=== PATIENT | female | born 1995 | race Two or more races ===

== ENCOUNTER 2025-07-22 18:36 | Inpatient (IN) | payer OTHER ==
[~2025-07-22] VITALS: Ht 170.2 cm; Wt 3.2 kg
[2025-07-22] MEDS ORDERED: RINGERS SOLUTION,LACTATED 1,000 ML IV SCH (18:45)
[2025-07-22] MEDS ORDERED: CHILDREN'S ASPI81 MG PO (19:05)
[2025-07-22] MEDS ORDERED: PRENATAL TABLE1 EAC1 PO (19:05)
[2025-07-22 19:10] VITALS: BP 119/82; O2SAT 100
[2025-07-22 19:54] LABS: BASO % 0.1 % (0.1-1.2); EOS # 0.04 (0.04-0.54); EOS % 0.4 % (0.7-7.0); LYMPH # 3.14 (1.18-3.74); LYMPH % 34.3 % (19.3-53.1); MEAN PLATELET VOLUME 12.40 fl (9.4-12.4); MONO # 0.70 (0.24-0.82); MONO % 7.6 % (4.7-12.5); NEUT # 5.23 (1.56-6.13); NEUT % 57.2 % (34.0-71.1); RED CELL DISTRIBUTION WIDTH 14.6 % (11.6-14.4)
[2025-07-22 19:56] LABS: URINE APPEARANCE Cloudy; URINE BILIRRUBIN Negative (NEGATIVE); URINE BLOOD Negative; URINE COLOR Dark Yellow; URINE GLUCOSE Negative (NEGATIVE); URINE KETONE Trace (NEGATIVE); URINE LEUKOCYTE Negative; URINE NITRATE Negative; URINE UROBILINOGEN 1.0 E.U./dl
[2025-07-22 19:59] LABS: URINE CAST 4.25 uL (0.0-1.40); URINE EPITHELIAL CELLS 96.7 uL (0.0-38.8); URINE RBC 8.6 uL (0.0-20.8); URINE WBC 78.4 uL (0.0-23.2)
[2025-07-22] MEDS ORDERED: AMPICILLIN SODIUM 2,000 MG VIAL IV ONE (20:15)
[2025-07-22 20:16] LABS: URINE PROTEIN 300 (NEGATIVE)
[2025-07-22 20:24] LABS: INR 0.96
[2025-07-22 20:28] LABS: ALT/SGPT 16.0 U/L (12-78); AST/SGOT 28.0 U/L (15-37); BILIRUBIN TOTAL 0.2 mg/dL (0.3-1.2); BUN CREA RATIO 15.0 (7.0-25.0); CREATININE SERUM 0.79 mg/dL (0.55-1.02); GFR 86.66; GLOBULINA 3.8 G/DL (2.4-3.5); GLUCOSE FASTING 109.0 mg/dL (65-100); OSMOLALITY SERUM 280.0 MOSM/KG (275-295)
[2025-07-22] MEDS ORDERED: MISOPROSTOL 25 MCG/4 ML GEL.W.APPL ONE (21:12)
[2025-07-22] MEDS ORDERED: MISOPROSTOL 25 MCG/4 ML GEL.W.APPL VAG ONE (22:15)
[2025-07-22 23:17] VITALS: BP 136/77
[2025-07-23] MEDS ORDERED: AMPICILLIN SODIUM 1,000 MG VIAL IV SCH
[2025-07-23 03:05] VITALS: BP 128/83
[2025-07-23 07:32] VITALS: BP 136/71
[2025-07-23] MEDS ORDERED: OXYTOCIN 20 UNITS/500ML RL PIGGYBAG IV ONE (08:10)
[2025-07-23] MEDS ORDERED: OXYTOCIN 500 ML IV SCH (08:30)
[2025-07-23 11:24] VITALS: BP 127/76
[2025-07-23 15:41] VITALS: BP 144/82
[2025-07-23] MEDS ORDERED: ACETAMINOPHEN 500 MG GEL..CAP PO ONE (17:09)
[2025-07-23] MEDS ORDERED: MORPHINE SULFATE 4 MG/ML CARTRIDGE IV STA (20:39)
[2025-07-23 23:38] VITALS: BP 147/83
[2025-07-24 04:37] VITALS: BP 128/71
[2025-07-24] MEDS ORDERED: OXYTOCIN 10 UNITS/ML VIAL ONE ×2 (07:22→13:13)
[2025-07-24] MEDS ORDERED: ERYTHROMYCIN BASE OPHT 1GM EACH TUBE OP ONE (07:22)
[2025-07-24 07:27] VITALS: BP 148/89
[2025-07-24] MEDS ORDERED: CEFAZOLIN SODIUM 1,000 MG VIAL ONE (08:12)
[2025-07-24] MEDS ORDERED: MORPHINE SULFATE 4 MG/ML VIAL IV PRN (09:15)
[2025-07-24] MEDS ORDERED: OXYTOCIN 1,000 ML IV SCH (10:45)
[2025-07-24] MEDS ORDERED: RINGERS SOLUTION,LACTATED 1,000 ML IV SCH (10:45)
[2025-07-24] MEDS ORDERED: SIMETHICONE 125 MG CAPSULE PO SCH (13:00)
[2025-07-24 13:21] LABS: BASO % 0.1 % (0.1-1.2); EOS # 0.01 (0.04-0.54); EOS % 0.1 % (0.7-7.0); LYMPH # 1.88 (1.18-3.74); LYMPH % 12.4 % (19.3-53.1); MEAN PLATELET VOLUME 12.30 fl (9.4-12.4); MONO # 1.02 (0.24-0.82); MONO % 6.7 % (4.7-12.5); NEUT # 12.12 (1.56-6.13); NEUT % 80.0 % (34.0-71.1); RED CELL DISTRIBUTION WIDTH 14.9 % (11.6-14.4)
[2025-07-24 14:08] VITALS: BP 130/80
[2025-07-24] MEDS ORDERED: DOCUSATE SODIUM 100MG CAP PO SCH (17:00)
[2025-07-24] MEDS ORDERED: KETOROLAC TROMETHAMINE 30 MG VIAL IM STA (18:19)
[2025-07-24 22:14] VITALS: BP 138/88
[2025-07-25 01:25] VITALS: BP 129/80
[2025-07-25 08:00] VITALS: BP 136/87
[2025-07-25] MEDS ORDERED: KETOROLAC TROMETHAMINE 60 MG VIAL IM STA (09:06)
[2025-07-25 16:39] VITALS: BP 120/80
[2025-07-25] MEDS ORDERED: KETOROLAC TROMETHAMINE 60 MG VIAL IM SCH (17:45)
[2025-07-25] MEDS ORDERED: IRON FUM,PS/FOLIC/BCOMP,C NO.9 1 CAP CAPSULE PO NR (17:50)
[2025-07-26] VITALS: BP 121/80
[2025-07-26 07:00] VITALS: BP 141/96; O2SAT 100
[2025-07-26] MEDS ORDERED: IRON FUM,PS/FOLIC/BCOMP,C NO.9 1 CAP CAPSULE PO SCH (09:00)
[2025-07-26] MEDS ORDERED: KETOROLAC TROMETHAMINE 60 MG VIAL IM ONE (16:15)
[2025-07-26] MEDS ORDERED: SIMETHICONE 125 MG CAPSULE PO SCH (17:00)
[2025-07-26 17:04] VITALS: BP 137/85
[2025-07-26] MEDS ORDERED: ACETAMINOPHEN 500 MG GEL..CAP PO SCH (18:38)
[2025-07-26] MEDS ORDERED: DOCUSATE SODIUM 100MG CAP PO SCH (18:40)
[2025-07-26] MEDS ORDERED: KETOROLAC TROMETHAMINE 60 MG VIAL IM PRN (18:45)
[2025-07-26 20:00] VITALS: BP 117/78
[2025-07-26 21:24] LABS: BASO % 0.1 % (0.1-1.2); EOS # 0.09 (0.04-0.54); EOS % 0.7 % (0.7-7.0); LYMPH # 2.55 (1.18-3.74); LYMPH % 20.0 % (19.3-53.1); MEAN PLATELET VOLUME 12.40 fl (9.4-12.4); MONO # 1.01 (0.24-0.82); MONO % 7.9 % (4.7-12.5); NEUT # 8.99 (1.56-6.13); NEUT % 70.7 % (34.0-71.1); RED CELL DISTRIBUTION WIDTH 15.3 % (11.6-14.4)
[2025-07-26 21:24] LABS: URINE APPEARANCE Turbid; URINE BILIRRUBIN Negative (NEGATIVE); URINE BLOOD Large; URINE COLOR Orange; URINE GLUCOSE Negative (NEGATIVE); URINE KETONE Trace (NEGATIVE); URINE LEUKOCYTE Small; URINE NITRATE Negative; URINE UROBILINOGEN 0.2 E.U./dl
[2025-07-26 21:28] LABS: URINE BACTERIA 1534.7 uL (0.0-1933); URINE EPITHELIAL CELLS 109.6 uL (0.0-38.8); URINE WBC 995.7 uL (0.0-23.2)
[2025-07-26 21:53] LABS: ALT/SGPT 20.0 U/L (12-78); AST/SGOT 24.0 U/L (15-37); BILIRUBIN TOTAL 0.18 mg/dL (0.3-1.2); BUN CREA RATIO 19.0 (7.0-25.0); CREATININE SERUM 0.8 mg/dL (0.55-1.02); GFR 85.41; GLOBULINA 3.6 G/DL (2.4-3.5); GLUCOSE FASTING 74.0 mg/dL (65-100); OSMOLALITY SERUM 286.0 MOSM/KG (275-295)
[2025-07-26 22:02] LABS: URINE CAST 1.31 uL (0.0-1.40); URINE PROTEIN 300 (NEGATIVE)
[2025-07-27] VITALS: BP 113/65
[2025-07-27 08:50] VITALS: BP 141/87
[2025-07-27] MEDS ORDERED: COLACE100 MG PO (13:04)
[2025-07-27] MEDS ORDERED: ACETAMINOPHEN500 M1 PO (13:04)
[2025-07-27] MEDS ORDERED: PRENATAL VITAM1 EAC5 PO (13:04)
[2025-07-27] MEDS ORDERED: IBUPROFEN800 MG PO (13:04)
[2025-07-27] MEDS ORDERED: SIMETHICONE125 M1 PO (13:04)
[2025-07-27 13:13] VITALS: BP 115/69
== END 2025-07-27 17:32 | disposition home or self-care (01) | DRG 787 ==
LOC: OB/GYN 18:36 → LDR 18:36 → O/R 18:36 → OB/GYN 07-24 12:41
PROVIDERS: General Practice; ADMIT Obstetrics & Gynecology; ATTEND Obstetrics & Gynecology
PROC: 3E033VJ Introduction of Other Hormone into Peripheral Vein, Percutaneous Approach (ICD-10-PCS; 2025-07-22)
PROC: 3E0P7VZ Introduction of Hormone into Female Reproductive, Via Natural or Artificial Opening (ICD-10-PCS; 2025-07-22)
PROC: 4A1HXCZ Monitoring of Products of Conception, Cardiac Rate, External Approach (ICD-10-PCS; 2025-07-22)
PROC: 10D00Z1 Extraction of Products of Conception, Low, Open Approach (ICD-10-PCS; principal; 2025-07-24 14:00)
DX: O14.04 Mild to moderate pre-eclampsia, complicating childbirth (principal); Z68.42 Body mass index [BMI] 45.0-49.9, adult; O99.214 Obesity complicating childbirth; O62.1 Secondary uterine inertia; E66.813 Obesity, class 3; Z3A.36 36 weeks gestation of pregnancy; Z37.0 Single live birth